=== PATIENT | female | born 1980 | race Caucasian/White ===

== ENCOUNTER 2024-04-08 10:14 | Emergency (ER) | payer BC ==
[~2024-04-08] VITALS: Ht 167.6 cm; Wt 81.6 kg
[2024-04-08] MEDS ORDERED: DHEA25 M3 PO (10:32)
[2024-04-08] MEDS ORDERED: [UNRECOGNIZED DRUG - MIXTURE] T (10:34)
== END 2024-04-08 12:43 | disposition home or self-care (01) ==
LOC: ED 10:14
DX: M25.522 Pain in left elbow (principal); M79.642 Pain in left hand; M79.632 Pain in left forearm; Z98.890 Other specified postprocedural states; W19.XXXA Unspecified fall, initial encounter